=== PATIENT | female | born 1990 | race Caucasian/White ===

== ENCOUNTER 2023-03-26 10:38 | Inpatient (IN) | payer BC, SELFPAY ==
[2023-03-26] VITALS (63 sets, daily range): BP systolic 101–129; BP diastolic 40–78; PULSE 51–123; RESP 18; TEMP 36.2–36.7; O2SAT 94–100; BMI 37.5
--- NOTE | 2023-03-26 11:12 | LDADM ---
This patient, Jennifer Fleming, was admitted to Labor/Delivery/Recovery 120 on 03/26/23 at 10:38. Plans for labor, pain management and were discussed with patient. Patient/family oriented to hospital policies and general routines including ID bracelet, bed and alarms, visiting hours, pain management, procedures, bathroom and other care routines, personal items, smoking policy, room service/diet and guest tray routines, infant security routines, and visiting hours. Patient/Family are encouraged to report perceived risks to care and to ask questions if they do not understand what they are told or what they should do. See OBIX for further documentation.
[2023-03-26] MEDS: LACTATED RINGERS 1,000 ML 125 ML IV CONT (11:28)
--- NOTE | 2023-03-26 11:32 | PM.IMHP ---
H&P: HPI History of Present Illness Date/Time: 03/26/23 11:32 Chief Complaint: Term Narrative: this patient is a 33-year-old 1 at 41 weeks gestation who presented with a breech today. She is also laboring. We agreed to proceed with delivery. She understands there is risk. She understands that injuries may occur that result in hospitalization, more surgery, and severe illness. She understands risk of hemorrhage and infection. She denies any nausea, vomiting, fever, chills. She denies any chest pain shortness of breath. She denies any loss of fluid or vaginal bleeding. Review of Systems Review of Systems: All systems reviewed & are unremarkable except as noted in HPI and below Constitutional: Constitutional: Denies chills, Denies fatigue, Denies fever(s) and Denies weakness Eyes: Eyes: Denies blurry vision, Denies change in vision, Denies loss of peripheral vision, Denies loss of vision, Denies other visual disturbances and Denies eye pain ENT: Denies vertigo, Denies dizziness, Denies hearing loss, Denies mouth pain, Denies nasal obstruction, Denies neck mass and Denies neck pain Cardiovascular: Cardiovascular: Denies chest pain, Denies diaphoresis, Denies syncope, Denies leg edema and Denies dyspnea Respiratory: Respiratory: Denies chest congestion, Denies cough, Denies hemoptysis, Denies dyspnea and Denies wheezing Gastrointestinal: Gastrointestinal: Denies abdominal pain, Denies constipation, Denies diarrhea, Denies nausea and Denies vomiting Genitourinary: Genitourinary: Denies hematuria, Denies change in libido, Denies nocturia, Denies genital lesions, Denies flank pain and Denies urinary urgency Musculoskeletal: Musculoskeletal: Denies abnormal gait, Denies back pain, Denies myalgias, Denies arthralgias, Denies joint swelling, Denies muscle weakness and Denies neck pain Integumentary/Breasts: Skin/Breast: Denies swelling, Denies breast pain, Denies breast mass, Denies dry skin, Denies nipple discharge, Denies unusual bruising and Denies jaundice Neurologic: Denies Neuro-related abnormal movements, Denies Abnormal speech present, Denies abnormal gait, Denies behavioral changes, Denies confusion, Denies vertigo, Denies dizziness, Denies syncope, Denies loss of vision, Denies memory loss, Denies convulsions and Denies weakness Psychiatric: Psychiatric: Denies abnormal sleep pattern, Denies behavioral changes, Denies change in libido, Denies confusion, Denies depression, Denies anhedonia and Denies memory loss Endocrine: Endocrine: Reports no additional endocrine complaints, Denies change in libido and Denies fatigue Hematologic/Lymphatic: Hematologic/Lymphatic: Reports no additional hematologic/lymphatic complaints Allergic/Immunologic: Allergic/Immunologic: Reports no additional allergic/immunologic complaints and Denies wheezing [facility] Family History Family History (Updated 02/26/23 @ 13:28 by Ingrid Brock, MORRIS) Other Unknown family medical history Social History Social History Smoking status: Smoker, status unknown Second hand tobacco smoke exposure: No Alcohol intake: current Substance use: never Lack of Transportation: No Lack of Food: Never True Current Housing: I Have Housing Concerned About Future Housing: No Difficulty Paying Gas/Electric Bills: No Difficulty Paying for Meds: No Currently Unemployed: No Education: Bachelor's Degree Difficulty w/ Childcare or Family Care: No Spiritual care concerns: No Meds Home Medications and Allergies Home Medications Medication Instructions Recorded Confirmed Type vits no.126-ferrous fum 1 tablet PO DAILY 02/26/23 02/26/23 History 28 mg iron-folic acid 800 mcg tablet (Classic ) Allergies Allergy/AdvReac Type Severity Reaction Status Date / Time No Known Allergies Allergy Verified 02/26/23 13:25 Vital Signs Vital Signs - 24 hr 03/26/23 11:12 Oxyg
[2023-03-26 11:33] LABS: Basophils Percent Auto 0.3 % (0.2-1.2); Eosinophils Percent Auto 0.1 % (0-4.4); Hematocrit 37.3 % (37.0-47.0); Hemoglobin 12.5 g/dL (12.0-15.0); Immature Granulocyte Absolute 0.04 K/mm3 (0.00-0.031); Immature Granulocyte Percent A 0.4 % (0-0.5); Lymphocytes Absolute Auto 1.15 K/mm3 (0.9-3.2); Lymphocytes Percent Auto 11.4 % (18.3-44.2); Mean Corpuscular HGB Conc 33.5 g/dl (32-36); Mean Corpuscular Hemoglobin 29.6 pg (26-34); Mean Corpuscular Volume 88.4 fl (80-100); Mean Platelet Volume 9.6 fl (7.4-10.4); Monocytes Absolute Auto 0.5 K/mm3 (0.1-0.6); Neutrophils Absolute Auto 8.4 K/mm3 (1.3-6.7); Neutrophils Percent Auto 82.8 % (45.5-73.1); Platelet Count Result 259 k/mm3 (150-375); Red Blood Count 4.22 M/mm3 (4.2-5.4); Red Cell Distribution Width 13.3 % (11.5-14.5); White Blood Count 10.1 K/mm3 (4.5-10.0)
--- NOTE | 2023-03-26 11:33 | WPDANESEPPF ---
Anes - Initial Pre Proc Eval Procedure: primary c/s Date/Time: 03/26/23 11:33 Surgeon: Juhi Harris MD Pre Op Diagnosis: breech Pre Op Diagnosis: c/s Patient Data Age: 32 Gender: F Height: 1.6 m Weight: 96 kg Last Vital Signs O2 Del Method Room Air 03/26/23 11:12 Allergies Allergy/AdvReac Type Severity Reaction Status Date / Time No Known Allergies Allergy Verified 02/26/23 13:25 Home Medications Medication Instructions Recorded Confirmed Type vits no.126-ferrous fum 1 tablet PO DAILY 02/26/23 02/26/23 History 28 mg iron-folic acid 800 mcg tablet (Classic ) Laboratory Tests 03/26/23 11:17 WBC Pending RBC Pending Hgb Pending Hct Pending MCV Pending MCH Pending MCHC Pending RDW Pending Plt Count Pending MPV Pending Immature Gran % (Auto) Pending Neut % (Auto) Pending Lymph % (Auto) Pending Blaine % (Auto) Pending Eos % (Auto) Pending Baso % (Auto) Pending Lymph # (Auto) Pending Blaine # (Auto) Pending Eos # (Auto) Pending Baso # (Auto) Pending Abs Immat Gran (auto) Pending Absolute Neuts (auto) Pending Absolute Nucleated RBC Pending Nucleated RBC % Pending RPR Pending Patient hx anesthesia problems: none Family hx anesthesia problems: none Results Review: All pre-operative results and documents have been reviewed as part of the pre-operative evaluation. [facility] Family History Family History (Updated 02/26/23 @ 13:28 by Ingrid Brock RN) Other Unknown family medical history Social History Social History Smoking status: Smoker, status unknown Second hand tobacco smoke exposure: No Alcohol intake: current Substance use: never Lack of Transportation: No Lack of Food: Never True Current Housing: I Have Housing Concerned About Future Housing: No Difficulty Paying Gas/Electric Bills: No Difficulty Paying for Meds: No Currently Unemployed: No Education: Bachelor's Degree Difficulty w/ Childcare or Family Care: No Spiritual care concerns: No Anes - Eval Final PreProcedure Day of Procedure 03/26/23 11:33 Patient weight: obese Heart: regular rate and rhythm Lungs: clear to auscultation and normal air movement Airway: Mallampati scale class II Neurological: alert and oriented Last oral intake: >/= 8 hours ASA classification: II Emergent: no Anesthetic plan: proceed Anesthesia type and monitoring: regional spinal and standard monitoring Results Review: All pre-operative results and documents have been reviewed as part of the pre-operative evaluation. Informed Consent: The patient's anesthetic plan and its attendant risks and benefits were discussed with the patient/family/POA. Questions were solicited and answers provided to the satisfaction of the patient/family/POA.
--- NOTE | 2023-03-26 11:39 | WPDHPUPDATE1 ---
History and Physical Update Update Date/Time: 03/26/23 11:39 History and Physical has been reviewed, including an updated exam of the patient. There are NO changes in the patient's condition. Risks, benefits, and alternatives have been discussed and questions answered. Patient agrees to proceed with procedure.
[2023-03-26] MEDS: KETOROLAC 30 MG/ML VIAL (*BKC) IV PUSH (12:28)
--- NOTE | 2023-03-26 12:53 | W.PM.PROC2 ---
Procedure Note - Detailed Date of Procedure 03/26/23 Pre-op Diagnosis c/s breech presentation Post-op Diagnosis Same Procedure Performed Low-transverse section Surgeon Juhi Harris MD Anesthesia Spinal Indications Breech presentation Findings Normal gestational maternal anatomy, average size infant, normal Apgars. footling breech Description of Procedure The patient was taken the operating room. She was prepped and draped in dorsal supine position with a leftward tilt. This was done after spinal anesthetic was applied. A low-transverse skin incision was made and carried down till of the fascia with the knife. The fascial incision was made with the knife. The fascial incision was extended laterally with Martinez scissors. The fascia was tented upward superiorly and inferiorly the rectus muscles were dissected off bluntly. The rectus muscles were the midline. The preperitoneal fat and peritoneum were dissected open bluntly at the superior aspect of the rectus muscles. The peritoneal incision was extended superior and inferior with good position of bladder. The uterine incision was made with a scalpel down to the level of the amniotic cavity. The amniotic cavity was entered bluntly. The infant was delivered. The cord was clamped and cut and the was handed off to waiting pediatric staff. Cord bloods were obtained. The placenta was removed manually. The uterus was exteriorized. The uterus was cleared of all clots, debris and membranes. The uterus was closed in 0 Vicryl running lock fashion. An imbricating over a was placed along the incision line as well. The uterus was returned to the abdomen. The gutters were cleared of all clots and debris. The fascia was closed with 0 Vicryl running fashion. The subcutaneous tissue was irrigated pinpoint bleeders were cauterized. The skin was closed with subcuticular absorbable fred. The skin incision line was covered with glue. The patient tolerated the procedure well. She has taken recovery room in stable condition. Sponge lap and needle counts were correct x2. Estimated Blood Loss 350 Complications No immediate complications Condition Stable Disposition PACU
[2023-03-26] MEDS: DEXTROSE 5%/0.45% SOD CHL 1,000 ML 125 ML IV CONT (18:00)
[2023-03-26] MEDS: DOCUSATE SODIUM 100 MG CAPSULE PO (19:10)
[2023-03-27 04:15] VITALS: BP 104/62; PULSE 82; RESP 18; TEMP 37.3; O2SAT 94
[2023-03-27 04:35] LABS: Basophils Percent Auto 0.3 % (0.2-1.2); Eosinophils Percent Auto 0.2 % (0-4.4); Hematocrit 31.8 % (37.0-47.0); Hemoglobin 10.4 g/dL (12.0-15.0); Immature Granulocyte Absolute 0.06 K/mm3 (0.00-0.031); Immature Granulocyte Percent A 0.5 % (0-0.5); Lymphocytes Absolute Auto 1.29 K/mm3 (0.9-3.2); Lymphocytes Percent Auto 9.8 % (18.3-44.2); Mean Corpuscular HGB Conc 32.7 g/dl (32-36); Mean Corpuscular Hemoglobin 29.7 pg (26-34); Mean Corpuscular Volume 90.9 fl (80-100); Mean Platelet Volume 9.9 fl (7.4-10.4); Monocytes Absolute Auto 0.9 K/mm3 (0.1-0.6); Monocytes Percent Auto 6.7 % (2.6-8.5); Neutrophils Absolute Auto 10.9 K/mm3 (1.3-6.7); Neutrophils Percent Auto 82.5 % (45.5-73.1); Platelet Count Result 204 k/mm3 (150-375); Red Cell Distribution Width 13.3 % (11.5-14.5); White Blood Count 13.2 K/mm3 (4.5-10.0)
[2023-03-27 06:04] LABS: Rapid Plasma Reagin Non-Reactive (NonReactive)
[2023-03-27] MEDS: MULTIVIT/MIN/PREN/FOL AC/IRON TABLET 1 TAB PO (07:18)
[2023-03-27] MEDS: DOCUSATE SODIUM 100 MG CAPSULE PO ×2 (07:18→17:22)
[2023-03-27] MEDS: IBUPROFEN 600 MG TABLET PO ×3 (07:18→21:15)
[2023-03-27 07:35] VITALS: BP 123/68; PULSE 77; RESP 18; TEMP 36.8; O2SAT 96
--- NOTE | 2023-03-27 08:08 | WPDANLDPN2 ---
Anes-Prog Note L&D Date/Time: 03/27/23 08:08 Comfortable throughout: section Neuraxial method: spinal Epidural/Spinal procedure site: clean & non-tender Neuro status: Neuro function grossly intact. Cardiovascular status: normal Respiratory status: normal Airway patency: baseline Mental status: baseline Post-Op hydration status: normal Vital Signs: Last Vital Signs Temp 37.3 C 03/27/23 04:15 Pulse 82 03/27/23 04:15 Resp 18 03/27/23 04:15 BP 104/62 03/27/23 04:15 Pulse Ox 94 03/27/23 04:15 O2 Del Method Room Air 03/27/23 04:15 Pain score (VAS): 2 I/O: Intake & Output 03/26/23 03/27/23 03/27/23 23:59 07:59 15:59 Intake Total 1000 600 Output Total 800 1550 Balance 200 -950 Post-procedural complaints: none Patient feedback: Patient satisfied with anesthetic care.
--- NOTE | 2023-03-27 08:09 | WPDANLDNPN2 ---
Anes-Prog Note L&D-Neuraxial Date/Time: 03/27/23 08:09 Neuraxial medications: intrathecal PF morphine Opiod-related complaints: none Patient feedback: Patient satisfied with post-operative pain management.
--- NOTE | 2023-03-27 08:24 | PM.OBPNVD ---
OB - PN: Subj Subjective Date/time seen: 03/27/23 08:24 Patient comments: no complaints, pain well controlled, tolerating diet and flatus present OB - PN: Obj Data Labs 03/27/23 04:05 Labs: Laboratory Results - last 24 hr 03/26/23 03/27/23 11:17 04:05 WBC 10.1 H 13.2 H RBC 4.22 3.50 L Hgb 12.5 10.4 L Hct 37.3 31.8 L MCV 88.4 90.9 MCH 29.6 29.7 MCHC 33.5 32.7 RDW 13.3 13.3 Plt Count 259 204 MPV 9.6 9.9 Immature Gran % (Auto) 0.4 0.5 Neut % (Auto) 82.8 H 82.5 H Lymph % (Auto) 11.4 L 9.8 L Charlton % (Auto) 5.0 6.7 Eos % (Auto) 0.1 0.2 Baso % (Auto) 0.3 0.3 Lymph # (Auto) 1.15 1.29 Charlton # (Auto) 0.5 0.9 H Eos # (Auto) 0.0 0.0 Baso # (Auto) 0.0 0.0 Abs Immat Gran (auto) 0.04 H 0.06 H Absolute Neuts (auto) 8.4 H 10.9 H Absolute Nucleated RBC 0.0 0.0 Nucleated RBC % 0.0 0.0 RPR Non-reactive Blood Type A Positive Antibody Screen Negative OB - PN A/P Plan day: 1 Comments: Post Op LTCS - no problems, routine recovery Time Spent With Patient Time: Total time spent is greater than 50% in coordination of care (as documented) at patient's floor/unit and/or counseling patient: Exam Const: General: cooperative, healthy appearing, comfortable and no acute distress Resp: Auscultation: no crackles, no rales, no rhonchi and no wheezes Cardio: Rhythm: regular rhythm Heart sounds: no click and no murmurs GI: Inspection: non-distended Auscultation: normal bowel sounds Extrem: General: normal to inspection, no pedal edema and no calf tenderness
[2023-03-27 12:49] VITALS: BP 117/57; PULSE 68; RESP 16; TEMP 36.8; O2SAT 95
--- NOTE | 2023-03-27 16:19 | PC.NURSE ---
[phone] Introductions were made, then consulted with patient to assess needs related to . Mother led the conversation with her?plans to feed?her infant and the?experience so far. Resources provided for inpatient and outpatient services with the feeding sheet, mom/baby guide and name written on the white board. Mother voiced understanding of information and states she was just about to attempt to breastfeed and receives the offer of assistance. Encouraged understanding of the benefits of skin to skin (demonstrating unwrapping and placing upright on her chest), stimulating with massage touch, changing positions to encourage wakefulness, how to watch for early feeding cues, responsive feeding, feeding on demand (aiming for 8-12 times in 24 hours, about every 2-3 hours), milk production, hand expression, building/maintaining a milk supply, duration of feeding, signs of adequate intake/output and how to record on the feeding sheet. discussed tongue training as infant opens his mouth and holds the tongue in the middle of the mouth or puts it to the roof of the mouth. The infants chin is somewhat recessed and there is some molding and asymmetry visualized. Reviewed positioning and ear, shoulder, hip alignment, supporting the breast to facilitate a deep latch, asymmetrical latch (off-center), leading with the chin with a big, open, wide gape and body close to mother. latched optimally to the left breast in football position. Education given to mother of how to visualize suck/swallow ratios and listen for drinking at the breast. Infant was able to maintain latch without discomfort to mother. Nipple care reviewed with optimal latch and good positioning. Reviewed good handwashing when or touching the breast/nipples to prevent infection. Resources used to facilitate learning were used with the tool, mom and baby guide. Mother voiced understanding of skin to skin, stimulating with massage touch, responsive feedings, hand expressed colostrum, talking to to encourage if it has been 2 -2.5 hours since the start of the last , to call if infant does not latch, or if there is discomfort with . self detached content, relaxed and nipple was not misshaped. Mother requested a pumping assessment to make sure the flange fit was optimal. Breast pump provided earlier due to separation from her infant. Instructions given on cleaning, care, usage, that there should be no pain, pumping schedule for milk production, collection, and storage of human milk. Patient was assessed for correct placement, flange size, to pump for comfort and nipple stretching/stimulation for adequate milk production every 3 hours (8 times in 24 hours) 1-2 times at night. Resources provided for inpatient/outpatient with feeding sheet and the mom/baby guide. Parents voiced understanding of information, demonstrated learning and will call if there is a request for assistance. Reported to primary RN.
[2023-03-27 20:00] VITALS: BP 124/70; PULSE 80; RESP 18; TEMP 36.6; O2SAT 99
--- NOTE | 2023-03-28 07:18 | PM.OBPNVD ---
OB - PN: Subj Subjective Date/time seen: 03/28/23 07:18 s/p section day 2 pain well managed flatus present baby doing well OB - PN: Obj Data Labs 03/27/23 04:05 OB - PN A/P Plan day: 2 Plan: routine care Time Spent With Patient Time: Total time spent is greater than 50% in coordination of care (as documented) at patient's floor/unit and/or counseling patient: Review of Systems Review of Systems: All systems reviewed & are unremarkable except as noted in HPI and below Exam Const: General: cooperative and healthy appearing Chest: Chest palpation & inspection: normal inspection of the chest Resp: Effort & Inspection: normal respiratory effort Cardio: Rate: regular rate Rhythm: regular rhythm GI: Other: incision CDI Skin: General skin exam: normal color Extrem: Right lower extremity: normal to inspection Left lower extremity: normal to inspection
[2023-03-28 08:35] VITALS: BP 116/82; PULSE 77; RESP 18; TEMP 36.6; O2SAT 97
[2023-03-28] MEDS: MULTIVIT/MIN/PREN/FOL AC/IRON TABLET 1 TAB PO (09:24)
[2023-03-28] MEDS: IBUPROFEN 600 MG TABLET PO (09:24)
[2023-03-28] MEDS: DOCUSATE SODIUM 100 MG CAPSULE PO ×2 (09:24→14:00)
[2023-03-28] MEDS: MEASLES,MUMPS,RUBELLA VACCINE 0.5 ML VIAL SUB-Q (09:25)
[2023-03-28] MEDS: HYDROcodone/acetaminophen (*CRX) 5-325 MG TABLET 1 TAB PO ×2 (13:47→20:04)
--- NOTE | 2023-03-28 17:39 | PC.NURSE ---
1350 - Introductions were made, then consulted with patient to assess needs related to . Mother led the conversation with her?plans to feed?her infant, the?experience so far and mother has questions regarding her pump flange. Time has gone by and parents are encouraged to stimulate for feeding. Encouraged understanding of the benefits of skin to skin (demonstrating unwrapping and placing upright on her chest), stimulating with massage touch, changing positions to encourage wakefulness, how to watch for early feeding cues, responsive feeding, feeding on demand (aiming for 8-12 times in 24 hours, about every 2-3 hours), milk production, building/maintaining a milk supply, duration of feeding, signs of adequate intake/output and how to record on the feeding sheet. Reviewed positioning and ear, shoulder, hip alignment, supporting the breast to facilitate a deep latch, asymmetrical latch (off-center), leading with the chin with a big, open, wide gape and body close to mother. is keeping tongue to the roof of the mouth or flipping it back. was allowed to suck on gloved finger, then finger was rotated to with firm gentleness pressure was applied to manipulate the tongue down and out. Over time lowered the tongue rarely. After tongue training the latched optimally to the left breast in football position using the teacup hold to place the nipple into the mouth while there's a big, open wide gape with the tingue down. Education given to mother of how to visualize suck/swallow ratios and listen for drinking at the breast. Infant was able to maintain latch without discomfort to mother for 10 minutes, then self detached without nipple misshaping. Nipple care reviewed with optimal latch and good positioning. Reviewed good handwashing when or touching the breast/nipples to prevent infection. Resources used to facilitate learning were used with the visual handouts, tool, mom and baby guide. Mother voiced understanding of skin to skin, stimulating with massage touch, responsive feedings, hand expressed colostrum, talking to to encourage on demand, however, use [id number] to offer from the start of the last , to call if infant does not latch, or if there is discomfort with . Resources provided for inpatient/outpatient with feeding sheet, name on the white board and the mom/baby guide. Parents voiced understanding of information, demonstrated learning and will call if there is a request for assistance. Reported to the Primary RN. 1500 - Contacted Ngoc Nassar (PedsRehab artist's manager) at the [facility]. Darcy Logan MS CCC-ADDING MACHINE OPERATOR is available on Friday at 1400 for a consult. Parents were instructed that they would get an order for the consult from the [facility] Bus Assistant.
[2023-03-28 20:00] VITALS: BP 131/74; PULSE 82; RESP 18; TEMP 36.8; O2SAT 99
[2023-03-29] MEDS: HYDROcodone/acetaminophen (*CRX) 5-325 MG TABLET 1 TAB PO ×2 (02:19→08:03)
[2023-03-29] MEDS: IBUPROFEN 600 MG TABLET PO ×2 (02:19→08:02)
[2023-03-29 08:00] VITALS: BP 119/69; PULSE 67; RESP 18; TEMP 36.4; O2SAT 100
[2023-03-29] MEDS: MULTIVIT/MIN/PREN/FOL AC/IRON TABLET 1 TAB PO (08:03)
[2023-03-29] MEDS: DOCUSATE SODIUM 100 MG CAPSULE PO (08:03)
--- NOTE | 2023-03-29 09:13 | PM.OBPNVD ---
OB - PN: Subj Subjective Date/time seen: 03/29/23 09:13 s/p section day 3 doing well baby doing well d/c home OB - PN: Obj Data Labs 03/27/23 04:05 OB - PN A/P Time Spent With Patient Time: Total time spent is greater than 50% in coordination of care (as documented) at patient's floor/unit and/or counseling patient: Review of Systems Review of Systems: All systems reviewed & are unremarkable except as noted in HPI and below Exam Const: General: cooperative and healthy appearing Chest: Chest palpation & inspection: normal inspection of the chest Resp: Effort & Inspection: normal respiratory effort Cardio: Rate: regular rate Rhythm: regular rhythm GI: Other: soft Extrem: Right lower extremity: normal to inspection Left lower extremity: normal to inspection
[2023-03-31 11:14] VITALS: BP 135/80; PULSE 77; RESP 18; TEMP 37.2; O2SAT 99
--- NOTE | 2023-04-01 14:38 | PM.OBDSVD ---
DS: Admitting Diagnosis Discharge Date 03/29/23 Admitting Diagnosis malposition DS: Discharge Diagnosis Discharge Diagnosis (1) Delivery by section: Status: Acute OB - DS: Summary OB Procedures : None OB Procedures Intrapartum: OB Procedures: : None Peripartum Data Procedures: Procedures Operation Date: 03/26/23 12:00 Actual Procedure Side Surgeon p Section Juhi Harris MD Time Spent with Patient Time attestation: Total time spent providing and/or coordinating discharge services: Discharge Plan Discharge Attending physician on discharge: Juhi Harris Consulting providers: Flaca Esparza; Murtaza Ray; Shayla Tripathi Discharging Clinician: Flaca Esparza Patient Disposition: Home, Self-Care Activity: pelvic rest Diet: regular Discharge Instructions: Education: Mom and Baby Guide Given to: Mother Follow-Up: Call your delivering provider's office for an appointment to be seen in: 1 Week Mom [facility] the follow-up appointment. Appointment Date/Time: March 31, 2023 at 11:00 am What to expect at your follow-up visit: Blood Pressure Check Physical Assessment Call [phone] if you are unable to keep your appointment time. BREAST CARE: * Wear a snug supportive bra. * For engorgement discomfort: Breast Feeding: * Apply warm moist washcloths * Express milk as needed to relieve engorgement * Wear loose clothing Bottle Feeding: * May apply ice packs * For sore nipples: * Identify correct latch-on * Apply warm moist washcloths before and after nursing * Air dry nipples after nursing * May apply Lansinoh cream to nipples ABDOMINAL INCISION: (if applicable) * Allow incision to air dry * Do NOT use lotions for powders on your incision * When showering, allow soap and water to run over the incision, but do not wash incision * Change your pad frequently throughout the day * No tub baths until seen by your physician - You may shower ACTIVITY: * Rest as much as possible. * Do not exercise or lift anything heavier than your baby (such as laundry or other children.) * Avoid stairs or driving as much as possible. * Do not put anything into the vagina. No douching, tampons, or sexual activity until seen by physician. NOTIFY PHYSICIAN IF YOU HAVE ANY QUESTIONS OR IF ANY OF THE FOLLOWING SYMPTOMS OCCUR: * If your episiotomy or incision becomes red, swollen, or more painful than what you have experienced in the hospital. * If your vaginal bleeding becomes foul smelling. * If your vaginal bleeding becomes more heavy than a period or if your bleeding changes from pink to bright red. However, you may pass an occasional walnut-sized clot once or twice for the first week . * If you experience a sharp, shooting pain in you calves. * If you discover a hard, reddened area on your breast or if you experience flu-like symptoms. DIET: * Eat regular, well-balanced meals. * Drink plenty of fluids daily. If , drink to thirst. Stand Alone Forms: General Discharge Information Follow-up/Referrals: Juhi Harris MD [Physician] - 1 Week (4 week lfaca esparza) Discharge Medications: New hydrocodone-acetaminophen 5-325 mg Tablet 1 tablet PO Q3H PRN (Reason: Moderate Pain (4-6)) Qty: 20 0RF Continued Classic 28 mg iron- 800 mcg Tablet 1 tablet PO DAILY Date of admission: 03/26/23 10:38 Primary Care Provider: PHYSICIAN,BUSINESS OPERATIONS DIRECTOR Admitting Provider: Juhi Harris Attending physician on admission: Juhi Harris Condition: Stable
== END 2023-03-29 10:45 | disposition home or self-care (01) | DRG 788 ==
LOC: ANHLDR 10:45 → ANHOB2 16:00
PROVIDERS: Admitting Provider Obstetrics & Gynecology; Visit Provider Obstetrics & Gynecology
PROC: 10D00Z1 Extraction of Products of Conception, Low, Open Approach (ICD-10-PCS; CPT 59514; principal; 2023-03-26 12:00)
DX: O32.8XX0 Maternal care for other malpresentation of fetus, not applicable or unspecified (principal); Z37.0 Single live birth; Z3A.40 40 weeks gestation of pregnancy; O99.824 Streptococcus B carrier state complicating childbirth
CPT/HCPCS: 36415; 85025; 86592; 86850; 86900; 86901; 90710; A9270; J1885; J2274; J2405; J2590; J7120